=== PATIENT | female | born 1960 | race American Indian/Alaskan Native ===

== ENCOUNTER 2016-10-26 12:49 | Emergency (ER) | payer MEDICAID ==
[2016-10-26 13:45] VITALS: BP 159/84
[2016-10-26 14:15] LABS: Basophils % (Auto) 0.3 % (0.0-1.8); Eosinophils % (Auto) 0.3 % (0.0-4.3); Hematocrit 36.4 % (30.3-42.9); Hemoglobin 12.4 gm/dl (10.1-14.3); Mean Corpuscular HGB Conc 34 % (30-34); Mean Corpuscular Hemoglobin 29 pg (28-32); Mean Corpuscular Volume 84 fl (79-97); Platelet Count 205 K/mm3 (140-440); Red Blood Count 4.32 M/mm3 (3.65-5.03); Red Cell Distribution Width 13.3 % (13.2-15.2); White Blood Count 6.7 K/mm3 (4.5-11.0)
[2016-10-26 14:37] LABS: Anion Gap 17 mmol/L; BUN/Creatinine Ratio 21.66; Blood Urea Nitrogen 13 mg/dL (7-17); Calcium 9.6 mg/dL (8.4-10.2); Carbon Dioxide 28 mmol/L (22-30); Chloride 99.8 mmol/L (98-107); Glucose 353 mg/dL (65-100); Potassium 3.7 mmol/L (3.6-5.0); Sodium 141 mmol/L (137-145)
[2016-10-26 14:39] LABS: Creatine Kinase MB 2.1 ng/mL (0.0-4.0)
--- NOTE | 2016-10-26 14:59 | XRay Report ---
Left humerus, elbow: There is a spiral shaped fracture through the distal shaft of the humerus. The fracture is angulated with a large and slightly displaced mid fragment. There's no lytic lesion identified but there is a focal bone island appearing density. The elbow appears to be aligned and intact although the positioning is limited by the fracture. Impressions: Displaced humerus fracture.
[2016-10-26 16:12] LABS: Bilirubin,Urine NEG (Negative); Blood,Urine NEG (Negative); Ketones,Urine NEG (Negative); Leukocyte Esterase,Urine NEG (Negative); Mucus,Urine FEW /HPF; Nitrite,Urine NEG (Negative); Urobilinogen,Urine < 2.0 mg/dL (<2.0)
[2016-10-26] MEDS ORDERED: DILAUDID IV ONE (16:31)
[2016-10-26] MEDS ORDERED: ZOFRAN IV ONE (16:31)
--- NOTE | 2016-10-26 16:41 | Emergency Department Report ---
HPI - General Chief Complaint: Extremity Injury, Upper Time Seen by Provider: 10/26/16 16:29 - HPI HPI: Room 19 The patient is a 56-year-old female presenting with a chief complaint of left arm pain. The patient states last night she was in her bathroom and slipped on the floor landing on her left elbow. Patient denies loss of consciousness. Patient complains of pain in her left upper extremity. The patient gives her pain a score of 10/10 Location: Left upper extremity Duration: Constant since last night Quality: Pain Severity:10/10 Modifying factors: Movement increases pain Context: [see above] Mode of transportation: [not driving] ED Past Medical Hx - Past Medical History Hx CVA: Yes (Weakness on left side) Hx Diabetes: Yes - Surgical History Past Surgical History?: No - Family History Family history: no significant - Social History Smoking Status: Never Smoker Substance Use Type: None - Medications Home Medications: Home Medications Medication Instructions Recorded Confirmed Last Taken Type Ibuprofen [Motrin 800 MG tab] 800 mg PO Q8HR PRN #20 tablet 10/26/16 Unknown Rx Insulin Glargine [Lantus VIAL] 50 units IM QHS 10/26/16 10/26/16 Unknown History Insulin Lispro [HumaLOG VIAL] See Protocol IM PRN 10/26/16 10/26/16 Unknown History Lisinopril [Zestril TAB] 20 mg PO QDAY 10/26/16 10/26/16 Unknown History Pravastatin Sodium [Pravastatin] 20 mg PO QDAY 10/26/16 10/26/16 Unknown History amLODIPine [Norvasc] 5 mg PO QDAY 10/26/16 10/26/16 Unknown History oxyCODONE /ACETAMINOPHEN [Percocet 1 - 2 tab PO Q4-6H PRN #30 tablet 10/26/16 Unknown Rx 5/325] ED Review of Systems ROS: Stated complaint: LEFT ELBOW INJURY Other details as noted in HPI Comment: All other systems reviewed and negative Constitutional: denies: chills, fever Eyes: denies: eye pain, eye discharge, vision change ENT: denies: ear pain, throat pain Respiratory: denies: cough, shortness of breath, wheezing Cardiovascular: denies: chest pain, palpitations Endocrine: no symptoms reported Gastrointestinal: denies: abdominal pain, nausea, diarrhea Genitourinary: denies: urgency, dysuria, discharge Musculoskeletal: myalgia Skin: denies: rash, lesions Neurological: denies: headache, weakness, paresthesias Psychiatric: denies: anxiety, depression Hematological/Lymphatic: as per HPI Physical Exam - Physical Exam Vital Signs: Vital Signs 10/26/16 10/26/16 13:29 15:50 Temperature 99.0 F Pulse Rate 87 Respiratory 20 18 Rate Blood Pressure 159/84 O2 Sat by Pulse 98 100 Oximetry Physical Exam: GENERAL: The patient is well-developed well-nourished female lying on stretcher appearing to be in moderate discomfort. [] HEENT: Normocephalic. Atraumatic. Extraocular motions are intact. Patient has moist mucous membranes. NECK: Supple. Trachea midline CHEST/LUNGS: Clear to auscultation. There is no respiratory distress noted. HEART/CARDIOVASCULAR: Regular. There is no tachycardia. There is no gallop rub or murmur. 2+ radial pulse on the left ABDOMEN: Abdomen is soft, nontender. Patient has normal bowel sounds. There is no abdominal distention. SKIN: There is no rash. There is no edema. There is no diaphoresis. NEURO: The patient is awake, alert, and oriented. The patient is cooperative. The patient has normal speech MUSCULOSKELETAL: There is tenderness palpation of the left humerus. ED Course Vital Signs 10/26/16 10/26/16 13:29 15:50 Temperature 99.0 F Pulse Rate 87 Respiratory 20 18 Rate Blood Pressure 159/84 O2 Sat by Pulse 98 100 Oximetry - Consultations Consultation #1: 10/26/16 16:[address] Cantu. Recommends long-arm splint and sling having patient follow up in the office ED Medical Decision Making - Lab Data Result diagrams: 10/26/16 14:02 10/26/16 14:02 Laboratory Tests 10/26/16 10/26/16 10/26/16 13:24 13:58 13:58 WBC RBC Hgb Hct MCV MCH MCHC RDW Plt Count Lymph % (Auto) Simpson % (Auto) Eos % (Auto) Baso % (Auto) Lymph # Simpson # Eos # Baso # Seg Neutrophils % Seg Neutrophils # VBG pH Sodium Potassium Chloride Carbon Dioxide Anion Gap BUN Creatinine Estimated GFR BUN/Creatinine Ratio Glucose POC Glucose 385 H Calcium Total Creatine Kinase 106 CK-MB (CK-2) 2.1 CK-MB (CK-2) Rel Index 1.9 Troponin T < 0.010 Urine Color Urine Turbidity Urine pH Ur Specific Lincoln Urine Protein Urine Glucose (UA) Urine Ketones Urine Blood Urine Nitrite Urine Bilirubin Urine Urobilinogen Ur Leukocyte Esterase Urine WBC (Auto) Urine RBC (Auto) U Epithel Cells (Auto) Amorphous Crystals Urine Mucus 10/26/16 10/26/16 10/26/16 14:02 14:02 14:02 WBC 6.7 RBC 4.32 Hgb 12.4 Hct 36.4 MCV 84 MCH 29 MCHC 34 RDW 13.3 Plt Count 205 Lymph % (Auto) 25.7 Simpson % (Auto) 8.7 H Eos % (Auto) 0.3 Baso % (Auto) 0.3 Lymph # 1.7 Simpson # 0.6 Eos # 0.0 Baso # 0.0 Seg Neutrophils % 65.0 Seg Neutrophils # 4.4 VBG pH 7.383 Sodium 141 Potassium 3.7 Chloride 99.8 Carbon Dioxide 28 Anion Gap 17 BUN 13 Creatinine 0.6 L Estimated GFR > 60 BUN/Creatinine Ratio 21.66 Glucose 353 H POC Glucose Calcium 9.6 Total Creatine Kinase CK-MB (CK-2) CK-MB (CK-2) Rel Index Troponin T Urine Color Urine Turbidity Urine pH Ur Specific [place] Urine Protein Urine Glucose (UA) Urine Ketones Urine Blood Urine Nitrite Urine Bilirubin Urine Urobilinogen Ur Leukocyte Esterase Urine WBC (Auto) Urine RBC (Auto) U Epithel Cells (Auto) Amorphous Crystals Urine Mucus 10/26/16 15:47 WBC RBC Hgb Hct MCV MCH MCHC RDW Plt Count Lymph % (Auto) Simpson % (Auto) Eos % (Auto) Baso % (Auto) Lymph # Simpson # Eos # Baso # Seg Neutrophils % Seg Neutrophils # VBG pH Sodium Potassium Chloride Carbon Dioxide Anion Gap BUN Creatinine Estimated GFR BUN/Creatinine Ratio Glucose POC Glucose Calcium Total Creatine Kinase CK-MB (CK-2) CK-MB (CK-2) Rel Index Troponin T Urine Color Yellow Urine Turbidity Clear Urine pH 5.0 Ur Specific Lincoln 1.035 H Urine Protein 100 mg/dl Urine Glucose (UA) >=500 Urine Ketones Neg Urine Blood Neg Urine Nitrite Neg Urine Bilirubin Neg Urine Urobilinogen < 2.0 Ur Leukocyte Esterase Neg Urine WBC (Auto) 2.0 Urine RBC (Auto) 2.0 U Epithel Cells (Auto) 1.0 Amorphous Crystals Few Urine Mucus Few - Radiology Data Radiology results: image reviewed (left humerus x-ray) interpreted by me: Left humerus [id number] fractures distal left humerus displaced - Differential Diagnosis humerus fracture Critical care attestation.: If time is entered above; I have spent that time in minutes in the direct care of this critically ill patient, excluding procedure time. ED Disposition Clinical Impression: Fracture, humerus closed, shaft Disposition: DISCHARGED TO HOME OR SELFCARE Is pt being admited?: No Does the pt Need Aspirin: No Condition: Stable Instructions: Arm Fracture in Adults (ED) Additional Instructions: Return to the emergency department immediately should you develop worsening symptoms, fever, inability to tolerate food or liquid or any other concerns. Prescriptions: Ibuprofen [Motrin 800 MG tab] 800 mg PO Q8HR PRN #20 tablet PRN Reason: Pain oxyCODONE /ACETAMINOPHEN [Percocet 5/325] 1 - 2 tab PO Q4-6H PRN #30 tablet PRN Reason: Pain Referrals: FRANCISCO MANCINI JR, MD [Primary Care Provider] - 3-5 Days TEENA BELLE MD [Staff Physician] - 24 Hours (Dr. Belle is an orthopedic surgeon. Please follow up with him for further evaluation) Time of Disposition: 16:45
[2016-10-26] MEDS ORDERED: TORADOL IV ONE (17:03)
[2016-10-30 23:21] LABS: B-Hydroxybutyrate 0.1 mmol/L (0.2 - 0.28)
== END 2016-10-26 17:40 | disposition home or self-care (01) ==
LOC: ED 12:49
DX: S42.342A Displaced spiral fracture of shaft of humerus, left arm, initial encounter for closed fracture (principal); E11.9 Type 2 diabetes mellitus without complications; Z86.73 Personal history of transient ischemic attack (TIA), and cerebral infarction without residual deficits; Z79.4 Long term (current) use of insulin; W01.0XXA Fall on same level from slipping, tripping and stumbling without subsequent striking against object, initial encounter; Y93.89 Activity, other specified; Y99.8 Other external cause status; Y92.89 Other specified places as the place of occurrence of the external cause
CPT/HCPCS: 29105; 36415; 51702; 73060; 73070; 80048; 81001; 82010; 82550; 82553; 82805; 82962; 84484; 85025; 93005; 93010; 96374; 96375; 99285; J1170; J1885; J2405